=== PATIENT | female | born 1980 | race American Indian/Alaskan Native ===

== ENCOUNTER 2021-09-25 11:33 | Emergency (ER) | payer SELFPAY ==
[2021-09-25] MEDS ORDERED: Acetaminophen 500 MG Tab PO ONE (12:15)
[2021-09-25 12:52] LABS: ESTIMATED GFR > 60 (>60)
[2021-09-25] MEDS ORDERED: Metoprolol Succinate 50 MG Tab.ER PO ONE (13:03)
== END 2021-09-25 14:06 | disposition home or self-care (01) ==
LOC: FB.ED 11:33
DX: J03.90 Acute tonsillitis, unspecified (principal); I10 Essential (primary) hypertension; E66.9 Obesity, unspecified; Z68.33 Body mass index [BMI] 33.0-33.9, adult; Z79.899 Other long term (current) drug therapy; Z86.16 Personal history of COVID-19; Z87.891 Personal history of nicotine dependence
CPT/HCPCS: 36415; 80048; 87070; 87077; 87651; 99283; A9270; 99282

== ENCOUNTER 2021-11-05 14:54 | Emergency (ER) | payer MEDICAID ==
[2021-11-05] MEDS ORDERED: Sodium Chloride 0.9% 10 ML Syringe FLUSH PRN (14:56)
[2021-11-05] MEDS: HYDROmorphone 2 MG/ML SDV IVPUSH ONE (15:02)
[2021-11-05] MEDS: Ondansetron 4 MG/2 ML SDV IVPUSH ONE (15:02)
[2021-11-05] MEDS: Ketorolac 30 MG/ML SDV IVPUSH ONE (15:06)
[2021-11-06] MEDS: Acetaminophen 500 MG Tab PO ONE (00:51)
== END 2021-11-05 16:10 | disposition home or self-care (01) ==
LOC: FB.ED 14:54
DX: S50.12XA Contusion of left forearm, initial encounter (principal); I10 Essential (primary) hypertension; E66.9 Obesity, unspecified; Z86.16 Personal history of COVID-19; Z68.36 Body mass index [BMI] 36.0-36.9, adult; Z79.899 Other long term (current) drug therapy; W18.30XA Fall on same level, unspecified, initial encounter
CPT/HCPCS: 73080-LT; 96374; 96375; 99281; 99283-25; J1170; J1885; J2405

== ENCOUNTER 2023-05-31 00:03 | Emergency (ER) | payer SELFPAY ==
[2023-05-31] MEDS: Morphine 4 MG/ML VIAL IM ONE (00:32)
[2023-05-31 00:44] LABS: AMPHETAMINES SCREEN, URINE NEGATIVE (NEGATIVE); BARBITURATE SCREEN,URINE NEGATIVE (NEGATIVE); BENZODIAZEPINES SCREEN,URINE NEGATIVE (NEGATIVE); METHADONE SCREEN, URINE NEGATIVE (NEGATIVE); METHAMPHETAMINE SCREEN, URINE NEGATIVE (NEGATIVE); OXYCODONE SCREEN,URINE NEGATIVE (NEGATIVE); THC SCREEN,URINE POSITIVE (NEGATIVE)
[2023-05-31 00:45] LABS: BUPRENORPHINE SCREEN,URINE NEGATIVE (NEGATIVE)
[2023-05-31 00:51] LABS: BASOPHILS PERCENT AUTO 0.2 % (0.2-1.5); EOSINOPHILS ABSOLUTE AUTO 0.1 x10-3/uL (0.0-0.8); EOSINOPHILS PERCENT AUTO 0.7 % (0.6-8.1); HEMATOCRIT 45.1 % (34.2-48.2); HEMOGLOBIN 15.2 g/dL (11.4-15.5); LYMPHOCYTES ABSOLUTE AUTO 1.7 x10-3/uL (1.0-4.4); LYMPHOCYTES PERCENT AUTO 19.4 % (18.4-52.1); MEAN CORPUSCULAR HEMOGLOBIN 30.3 pg (23.9-33.9); MEAN CORPUSCULAR HGB CONC 33.6 g/dL (31.9-34.8); MEAN PLATELET VOLUME 9.6 fL (7.1-12.4); MONOCYTES ABSOLUTE AUTO 0.4 x10-3/uL (0.3-1.0); MONOCYTES PERCENT AUTO 4.1 % (4.4-15.7); NEUTROPHILS ABSOLUTE AUTO 6.6 x10-3/uL (1.5-6.3); NEUTROPHILS PERCENT AUTO 75.6 % (30.8-76.2); PLATELET COUNT,PLT 203 x10(3)uL (151-488); RED BLOOD CELL COUNT 5.02 x10(6)uL (3.60-5.20); RED CELL DISTRIBUTION WIDTH 14.1 % (12.3-16.5); WHITE BLOOD CELL COUNT,WBC 8.7 x10-3/uL (3.0-10.3)
[2023-05-31 00:52] LABS: BLOOD UREA NITROGEN,BUN 9 mg/dL (7-18); BUN/CREATININE RATIO 12.9 (9-20); CALCIUM 8.8 mg/dL (8.6-10.2); CARBON DIOXIDE,CO2 21 mmol/L (21-32); CHLORIDE,CL 108 mmol/L (100-110); CREATININE 0.7 mg/dL (0.55-1.02); EST CRCL DRUG DOSING (CG) 89.48 mL/min; ESTIMATED GFR 110 mL/min (>60); GLUCOSE RANDOM 165 mg/dL (80-116); POTASSIUM,K 3.7 mmol/L (3.5-5.3); SODIUM,NA 144 mmol/L (135-145)
[2023-05-31 00:58] LABS: ALANINE AMINOTRANSFERASE,ALT 17 U/L (12-36); ALBUMIN 3.8 g/dL (3.5-5.2); ALKALINE PHOSPHATASE 85 IU/L (56-112); ASPARTATE AMNIOTRANSFERASE,AST 16 IU/L (5-25); BILIRUBIN TOTAL 0.3 mg/dL (0.1-1.3); INR 0.89 (1.00-1.24); PROTEIN TOTAL,TP 7.7 g/dL (6.0-8.0); PROTHROMBIN TIME 9.4 sec (9.0-11.1)
[2023-05-31] MEDS: Ondansetron 4 MG Tab.DIS PO ONE (01:33)
[2023-05-31] MEDS: Alum Hydroxide/Mag Hydroxide 15 ML, Lidocaine 2% 15 ML PO ONE (01:57)
[2023-05-31] MEDS: amLODIPine 5 MG Tab PO ONE (01:58)
== END 2023-05-31 03:43 | disposition home or self-care (01) ==
LOC: FB.ED 00:03
DX: S01.112A Laceration without foreign body of left eyelid and periocular area, initial encounter (principal); F10.129 Alcohol abuse with intoxication, unspecified; K21.9 Gastro-esophageal reflux disease without esophagitis; I10 Essential (primary) hypertension; E66.9 Obesity, unspecified; E11.9 Type 2 diabetes mellitus without complications; Z68.35 Body mass index [BMI] 35.0-35.9, adult; Z86.16 Personal history of COVID-19; Z90.49 Acquired absence of other specified parts of digestive tract; Z90.710 Acquired absence of both cervix and uterus; Z79.899 Other long term (current) drug therapy; W31.89XA Contact with other specified machinery, initial encounter
CPT/HCPCS: 36415; 70450; 73030; 73110; 73590; 80053; 80307; 85025; 85610; 85730; 96372; 99284; A9270; J2270; Q0162

== ENCOUNTER 2023-10-21 22:06 | Emergency (ER) | payer OTHER, MEDICAID | END 2023-10-21 23:38 | disposition home or self-care (01) | LOC: FB.ED 22:06 | DX: S63.502A Unspecified sprain of left wrist, initial encounter (principal); I10 Essential (primary) hypertension; E11.9 Type 2 diabetes mellitus without complications; E66.9 Obesity, unspecified; Z86.16 Personal history of COVID-19; Z90.49 Acquired absence of other specified parts of digestive tract; Z90.710 Acquired absence of both cervix and uterus; Z68.36 Body mass index [BMI] 36.0-36.9, adult; V47.5XXA Car driver injured in collision with fixed or stationary object in traffic accident, initial encounter; Y92.410 Unspecified street and highway as the place of occurrence of the external cause | CPT/HCPCS: 73110-LT; 99284 ==

== ENCOUNTER 2024-01-24 13:00 | Emergency (ER) | payer MEDICAID ==
[2024-01-24] MEDS ORDERED: Sodium Chloride 0.9% 10 ML Syringe FLUSH PRN (13:14)
[2024-01-24] MEDS: Lisinopril 10 MG Tab PO ONE (13:25)
[2024-01-24] MEDS: LORazepam 2 MG/ML SDV IVPUSH ONE (13:32)
[2024-01-24 13:35] LABS: BASOPHILS PERCENT AUTO 0.3 % (0.2-1.5); EOSINOPHILS PERCENT AUTO 0.3 % (0.6-8.1); HEMATOCRIT 46.3 % (34.2-48.2); HEMOGLOBIN 15.8 g/dL (11.4-15.5); LYMPHOCYTES ABSOLUTE AUTO 1.8 x10-3/uL (1.0-4.4); LYMPHOCYTES PERCENT AUTO 15.9 % (18.4-52.1); MEAN CORPUSCULAR HEMOGLOBIN 30.1 pg (23.9-33.9); MEAN CORPUSCULAR VOLUME 88.4 fL (76.7-100.5); MEAN PLATELET VOLUME 10.1 fL (7.1-12.4); MONOCYTES ABSOLUTE AUTO 0.5 x10-3/uL (0.3-1.0); MONOCYTES PERCENT AUTO 4.6 % (4.4-15.7); NEUTROPHILS ABSOLUTE AUTO 8.9 x10-3/uL (1.5-6.3); NEUTROPHILS PERCENT AUTO 78.9 % (30.8-76.2); PLATELET COUNT,PLT 220 x10(3)uL (151-488); RED BLOOD CELL COUNT 5.24 x10(6)uL (3.60-5.20); RED CELL DISTRIBUTION WIDTH 14.3 % (12.3-16.5); WHITE BLOOD CELL COUNT,WBC 11.3 x10-3/uL (3.0-10.3)
[2024-01-24 13:36] LABS: BLOOD UREA NITROGEN,BUN 5 mg/dL (7-18); BUN/CREATININE RATIO 7.1 (9-20); CALCIUM 8.6 mg/dL (8.6-10.2); CARBON DIOXIDE,CO2 27 mmol/L (21-32); CHLORIDE,CL 100 mmol/L (100-110); CREATININE 0.7 mg/dL (0.55-1.02); ESTIMATED GFR 109 mL/min (>60); GLUCOSE RANDOM 108 mg/dL (80-116); SODIUM,NA 141 mmol/L (135-145)
[2024-01-24 13:41] LABS: ALANINE AMINOTRANSFERASE,ALT 19 U/L (12-36); ALBUMIN 4.2 g/dL (3.5-5.2); ALKALINE PHOSPHATASE 85 IU/L (56-112); ASPARTATE AMNIOTRANSFERASE,AST 16 IU/L (5-25); BILIRUBIN TOTAL 0.9 mg/dL (0.1-1.3); PROTEIN TOTAL,TP 8.3 g/dL (6.0-8.0)
[2024-01-24 13:48] LABS: BILIRUBIN,URINE NEGATIVE (NEGATIVE); GLUCOSE,URINE NORMAL (NORMAL); KETONES,URINE NEGATIVE (NEGATIVE); LEUKOCYTE ESTERASE,URINE SMALL (NEGATIVE); NITRITE,URINE NEGATIVE (NEGATIVE); OCCULT BLOOD,URINE NEGATIVE (NEGATIVE); PROTEIN,URINE TRACE mg/dL (NEGATIVE); UROBILINOGEN,URINE NORMAL (NEGATIVE)
[2024-01-24 14:01] LABS: APPEARANCE,URINE CLOUDY (CLEAR); COLOR,URINE YELLOW (YELLOW); SQUAMOUS EPITHELIAL CELLS,UR MODERATE (NS,R,O); WBC,URINE 20-30 (0-5)
[2024-01-24 14:02] LABS: BACTERIA,URINE MANY (NS)
[2024-01-24 14:03] LABS: AMPHETAMINES SCREEN, URINE NEGATIVE (NEGATIVE); BARBITURATE SCREEN,URINE NEGATIVE (NEGATIVE); BENZODIAZEPINES SCREEN,URINE NEGATIVE (NEGATIVE); METHADONE SCREEN, URINE NEGATIVE (NEGATIVE); METHAMPHETAMINE SCREEN, URINE POSITIVE (NEGATIVE); OXYCODONE SCREEN,URINE NEGATIVE (NEGATIVE); THC SCREEN,URINE POSITIVE (NEGATIVE)
[2024-01-24 14:04] LABS: BUPRENORPHINE SCREEN,URINE NEGATIVE (NEGATIVE)
[2024-01-24] MEDS: Labetalol 20 MG/4 ML Syringe IVPUSH ONE (14:23)
== END 2024-01-24 16:05 | disposition home or self-care (01) ==
LOC: FB.ED 13:00
DX: I10 Essential (primary) hypertension (principal); F15.10 Other stimulant abuse, uncomplicated; E11.9 Type 2 diabetes mellitus without complications; E66.9 Obesity, unspecified; Z86.16 Personal history of COVID-19; Z90.49 Acquired absence of other specified parts of digestive tract; Z90.710 Acquired absence of both cervix and uterus; Z68.34 Body mass index [BMI] 34.0-34.9, adult
CPT/HCPCS: 36415; 80053; 80307; 81001; 85025; 87086; 87088; 96374; 96375; 99284; A9270; J1920; J2060; 87186

== ENCOUNTER 2024-04-02 20:11 | Emergency (ER) | payer MEDICAID ==
[2024-04-02] MEDS: Ketorolac 30 MG/ML SDV IM ONE (23:48)
== END 2024-04-03 00:25 | disposition home or self-care (01) ==
LOC: FB.ED 20:11
DX: S53.102A Unspecified subluxation of left ulnohumeral joint, initial encounter (principal); S80.212A Abrasion, left knee, initial encounter; I10 Essential (primary) hypertension; E11.9 Type 2 diabetes mellitus without complications; E66.9 Obesity, unspecified; Z86.16 Personal history of COVID-19; Z90.49 Acquired absence of other specified parts of digestive tract; Z90.710 Acquired absence of both cervix and uterus; Z79.899 Other long term (current) drug therapy; X50.1XXA Overexertion from prolonged static or awkward postures, initial encounter
CPT/HCPCS: 73080; 96372; 99283; J1885

== ENCOUNTER 2024-05-07 22:24 | Emergency (ER) | payer MEDICAID, OTHER ==
[2024-05-07] MEDS: Losartan 50 MG Tab PO ONE (23:27)
[2024-05-07] MEDS: Metoprolol Tartrate 50 MG Tab PO ONE (23:27)
== END 2024-05-08 00:24 ==
LOC: FB.ED 22:24
DX: I10 Essential (primary) hypertension (principal); Z86.16 Personal history of COVID-19; Z90.49 Acquired absence of other specified parts of digestive tract
CPT/HCPCS: 99283; A9270

== ENCOUNTER 2024-05-15 23:07 | Emergency (ER) | payer OTHER, MEDICAID ==
[2024-05-15] MEDS ORDERED: traMADol 50 MG Tab PO ONE (23:08)
[2024-05-15 23:56] LABS: BASOPHILS ABSOLUTE AUTO 0.1 x10-3/uL (0.0-0.1); BASOPHILS PERCENT AUTO 0.4 % (0.2-1.5); EOSINOPHILS ABSOLUTE AUTO 0.2 x10-3/uL (0.0-0.8); EOSINOPHILS PERCENT AUTO 1.5 % (0.6-8.1); HEMATOCRIT 45.6 % (34.2-48.2); HEMOGLOBIN 15.5 g/dL (11.4-15.5); LYMPHOCYTES ABSOLUTE AUTO 2.2 x10-3/uL (1.0-4.4); LYMPHOCYTES PERCENT AUTO 17.7 % (18.4-52.1); MEAN CORPUSCULAR HEMOGLOBIN 30.2 pg (23.9-33.9); MEAN CORPUSCULAR HGB CONC 33.9 g/dL (31.9-34.8); MEAN CORPUSCULAR VOLUME 88.9 fL (76.7-100.5); MEAN PLATELET VOLUME 10.5 fL (7.1-12.4); MONOCYTES ABSOLUTE AUTO 0.6 x10-3/uL (0.3-1.0); MONOCYTES PERCENT AUTO 4.6 % (4.4-15.7); NEUTROPHILS ABSOLUTE AUTO 9.5 x10-3/uL (1.5-6.3); NEUTROPHILS PERCENT AUTO 75.8 % (30.8-76.2); PLATELET COUNT,PLT 207 x10(3)uL (151-488); RED BLOOD CELL COUNT 5.14 x10(6)uL (3.60-5.20); RED CELL DISTRIBUTION WIDTH 14.5 % (12.3-16.5); WHITE BLOOD CELL COUNT,WBC 12.5 x10-3/uL (3.0-10.3)
[2024-05-15 23:59] LABS: BLOOD UREA NITROGEN,BUN 6 mg/dL (7-18); CALCIUM 9.8 mg/dL (8.6-10.2); CARBON DIOXIDE,CO2 25 mmol/L (21-32); CHLORIDE,CL 104 mmol/L (100-110); CREATININE 0.6 mg/dL (0.55-1.02); EST CRCL DRUG DOSING (CG) 94.63 mL/min; ESTIMATED GFR 113 mL/min (>60); GLUCOSE RANDOM 109 mg/dL (80-116); POTASSIUM,K 3.9 mmol/L (3.5-5.3); SODIUM,NA 139 mmol/L (135-145)
[2024-05-16 00:02] LABS: BILIRUBIN,URINE NEGATIVE (NEGATIVE); GLUCOSE,URINE NORMAL (NORMAL); KETONES,URINE NEGATIVE (NEGATIVE); LEUKOCYTE ESTERASE,URINE NEGATIVE (NEGATIVE); NITRITE,URINE NEGATIVE (NEGATIVE); OCCULT BLOOD,URINE NEGATIVE (NEGATIVE); PROTEIN,URINE NEGATIVE (NEGATIVE); UROBILINOGEN,URINE NORMAL (NEGATIVE)
[2024-05-16 00:04] LABS: APPEARANCE,URINE CLEAR (CLEAR); BACTERIA,URINE OCCASIONAL (NS); COLOR,URINE YELLOW (YELLOW); RBC,URINE 0-5 (0-5); SQUAMOUS EPITHELIAL CELLS,UR OCCASIONAL (NS,R,O); WBC,URINE 0-5 (0-5)
[2024-05-16 00:04] LABS: LIPASE 31 U/L (16-77)
[2024-05-16 00:05] LABS: ALANINE AMINOTRANSFERASE,ALT 24 U/L (12-36); ALKALINE PHOSPHATASE 90 IU/L (56-112); ASPARTATE AMNIOTRANSFERASE,AST 12 IU/L (5-25); BILIRUBIN TOTAL 0.5 mg/dL (0.1-1.3); C-REACTIVE PROTEIN < 0.50 mg/dL (<0.50); MAGNESIUM 1.8 mg/dL (1.8-2.5); PROTEIN TOTAL,TP 8.1 g/dL (6.0-8.0)
[2024-05-16] MEDS ORDERED: Naloxone 0.4 MG/ML SDV IVPUSH PRN (00:17)
[2024-05-16] MEDS: Ondansetron 4 MG/2 ML SDV IVPUSH ONE (00:26)
[2024-05-16] MEDS: Sodium Chloride 0.9% 10 ML Syringe FLUSH PRN (00:26)
[2024-05-16] MEDS: HYDROmorphone 2 MG/ML SDV IVPUSH ONE (00:28)
[2024-05-16] MEDS: Ciprofloxacin 500 MG Tab PO ONE (02:47)
[2024-05-16] MEDS: metroNIDAZOLE 500 MG Tab PO ONE (02:47)
== END 2024-05-16 02:57 ==
LOC: FB.ED 23:07
DX: K52.9 Noninfective gastroenteritis and colitis, unspecified (principal); R93.7 Abnormal findings on diagnostic imaging of other parts of musculoskeletal system; I10 Essential (primary) hypertension; E66.9 Obesity, unspecified; Z68.36 Body mass index [BMI] 36.0-36.9, adult; Z86.16 Personal history of COVID-19; Z90.710 Acquired absence of both cervix and uterus; Z79.899 Other long term (current) drug therapy
CPT/HCPCS: 36415; 74176; 80053; 81001; 83605; 83690; 83735; 85025; 86140; 96374; 96375; 99284; A9270; J1171; J2405

== ENCOUNTER 2024-12-04 10:34 | Emergency (ER) | payer MEDICAID ==
[2024-12-04 11:24] LABS: BASOPHILS ABSOLUTE AUTO 0.0 x10-3/uL (0.0-0.1); BASOPHILS PERCENT AUTO 0.4 % (0.2-1.5); EOSINOPHILS ABSOLUTE AUTO 0.1 x10-3/uL (0.0-0.8); EOSINOPHILS PERCENT AUTO 2.0 % (0.6-8.1); LYMPHOCYTES ABSOLUTE AUTO 2.1 x10-3/uL (1.0-4.4); LYMPHOCYTES PERCENT AUTO 28.3 % (18.4-52.1); MEAN PLATELET VOLUME 9.8 fL (7.1-12.4); MONOCYTES ABSOLUTE AUTO 0.4 x10-3/uL (0.3-1.0); MONOCYTES PERCENT AUTO 6.0 % (4.4-15.7); NEUTROPHILS ABSOLUTE AUTO 4.7 x10-3/uL (1.5-6.3); NEUTROPHILS PERCENT AUTO 63.3 % (30.8-76.2); PLATELET COUNT,PLT 219 x10(3)uL (151-488); RED BLOOD CELL COUNT 4.95 x10(6)uL (3.60-5.20); RED CELL DISTRIBUTION WIDTH 14.1 % (12.3-16.5); WHITE BLOOD CELL COUNT,WBC 7.4 x10-3/uL (3.0-10.3)
[2024-12-04 11:33] LABS: BLOOD UREA NITROGEN,BUN 9 mg/dL (7-18); CARBON DIOXIDE,CO2 26 mmol/L (21-32); CHLORIDE,CL 108 mmol/L (100-110); CREATININE 0.6 mg/dL (0.55-1.02); ESTIMATED GFR 113 mL/min (>60); GLUCOSE RANDOM 121 mg/dL (80-116); POTASSIUM,K 4.3 mmol/L (3.5-5.3); SODIUM,NA 142 mmol/L (135-145)
[2024-12-04 11:39] LABS: A/G RATIO 1.0; ALANINE AMINOTRANSFERASE,ALT 23 U/L (12-36); ASPARTATE AMNIOTRANSFERASE,AST 17 IU/L (5-25); BILIRUBIN TOTAL 0.5 mg/dL (0.1-1.3); PROTEIN TOTAL,TP 7.3 g/dL (6.0-8.0)
[2024-12-04] MEDS: Ketorolac 30 MG/ML SDV IM ONE (11:49)
== END 2024-12-04 13:52 | disposition home or self-care (01) ==
LOC: FB.ED 10:34
DX: M19.011 Primary osteoarthritis, right shoulder (principal); I10 Essential (primary) hypertension; Z86.16 Personal history of COVID-19; Z87.891 Personal history of nicotine dependence
CPT/HCPCS: 36415; 73030; 80053; 84484; 85025; 86140; 93005; 96372; 99284; A9270; J1885; 93010